=== PATIENT | female | born 2005 ===

== ENCOUNTER 2023-04-01 17:48 | Emergency (ER) | payer SELFPAY | END 2023-04-01 17:50 | disposition left against medical advice (07) | LOC: DL.ED 17:48 | DX: Z53.21 Procedure and treatment not carried out due to patient leaving prior to being seen by health care provider (principal) ==

== ENCOUNTER 2023-04-01 18:44 | Emergency (ER) | payer SELFPAY | END 2023-04-01 19:58 | disposition left against medical advice (07) | LOC: DL.ED 18:44 | DX: Z53.21 Procedure and treatment not carried out due to patient leaving prior to being seen by health care provider (principal) ==